=== PATIENT | female | born 1980 | race Caucasian/White ===

== ENCOUNTER 2016-12-09 11:56 | Observation (INO) | payer BC, OTHER ==
[~2016-12-09] VITALS: Ht 162.6 cm; Wt 55.2 kg
[~2016-12-09 11:56] MED LIST: MULT-516 PO
[2016-12-09 12:38] LABS: HCG UR OBC PASS
[2016-12-09 12:50] VITALS: BP 151/87
[2016-12-09] MEDS: LACTATED RINGERS 1,000 ML IV SCH ×3 (12:50→18:42)
[2016-12-09] MEDS ORDERED: PLEASE ENTER ALLERGIES MC SCH ×4 (13:00→17:30)
[2016-12-09] MEDS ORDERED: MIDAZOLAM 1 MG/ML, 2ML ONE (13:07)
[2016-12-09] MEDS ORDERED: HYDROmorphone 2 MG/ML, 1ML ONE (13:07)
[2016-12-09] MEDS ORDERED: FENTANYL PF 100 MCG/2ML ONE ×2 (13:07→16:31)
[2016-12-09] MEDS ORDERED: BUPIVACAINE/PF 0.5% ONE (13:50)
[2016-12-09] MEDS ORDERED: EPINEPHRINE 1 MG/ML, 1ML ONE (13:50)
[2016-12-09] MEDS ORDERED: DEXAMETHASONE 4 MG/ML, 1ML ONE ×2 (14:15)
[2016-12-09] MEDS ORDERED: ONDANSETRON 2MG/ML, 2ML ONE ×3 (14:15→16:31)
[2016-12-09] MEDS ORDERED: CEFAZOLIN 1,000 MG ONE ×2 (14:15)
[2016-12-09] MEDS ORDERED: SUCCINYLCHOLINE 20 MG/ML, 10ML ONE ×2 (14:15)
[2016-12-09] MEDS ORDERED: PROPOFOL 10 MG/ML, 20ML ONE ×2 (14:15)
[2016-12-09] MEDS ORDERED: ROCURONIUM 10 MG/ML ONE ×2 (14:15)
[2016-12-09] MEDS ORDERED: KETOROLAC 30 MG/1 ML ONE ×2 (14:15)
[2016-12-09] MEDS ORDERED: OXYcodone 5 MG/5 ML ORAL.SOL UDC PO PRN (15:30)
[2016-12-09] MEDS ORDERED: METOCLOPRAMIDE 5 MG/ML, 2ML IV PRN (15:30)
[2016-12-09] MEDS ORDERED: LABETALOL 5MG/ML, 20ML IV PRN (15:30)
[2016-12-09] MEDS ORDERED: hydrALAzine 20 MG/ML, 1ML IV PRN (15:30)
[2016-12-09] MEDS ORDERED: ONDANSETRON 2MG/ML, 2ML IVPush PRN ×2 (15:30→17:00)
[2016-12-09] MEDS ORDERED: ACETAMINOPHEN 325 MG TABLET PO PRN (15:30)
[2016-12-09] MEDS ORDERED: ACETAMINOPHEN 650 MG/20.3 ML UDC ONE (16:31)
[2016-12-09] MEDS ORDERED: OXYcodone 5 MG/5 ML ORAL.SOL UDC ONE (16:31)
[2016-12-09] MEDS: FENTANYL PF 100 MCG/2ML IV PRN ×2 (16:35→16:48)
[2016-12-09] MEDS ORDERED: LACTATED RINGERS 1,000 ML IV SCH (16:40)
[2016-12-09] MEDS ORDERED: DIPHENHYDRAMINE 50 MG/ML, 1ML ONE (16:42)
[2016-12-09] MEDS ORDERED: DIPHENHYDRAMINE 50 MG/ML, 1ML IVPush ONE (17:00)
[2016-12-09] MEDS ORDERED: HYDROmorphone 2 MG/ML, 1ML IVPush PRN (17:00)
[2016-12-09] MEDS ORDERED: KETOROLAC 30 MG/1 ML IVPush SCH (17:00)
[2016-12-09] MEDS ORDERED: HYDROmorphone 1 MG/ML, 1ML ONE (17:13)
[2016-12-09] MEDS: HYDROmorphone 1 MG/ML, 1ML IV PRN ×2 (17:16→17:35)
[2016-12-09] MEDS ORDERED: ONDA4TAB13 SL (19:27)
[2016-12-09 19:29] VITALS: BP 137/74
[2016-12-09] MEDS: OXYcodone/APAP 5/325MG TABLET PO PRN ×2 (19:52→20:39)
[2016-12-09] MEDS ORDERED: DOCUSATE 100 MG CAPSULE PO SCH (21:00)
== END 2016-12-09 20:00 | disposition home or self-care (01) ==
LOC: OUT 11:56 → ORIP 16:40 → 4NOR 18:15
PROVIDERS: ADMIT Obstetrics & Gynecology; ATTEND Obstetrics & Gynecology
DX: N80.9 Endometriosis, unspecified (principal); N92.1 Excessive and frequent menstruation with irregular cycle; R10.2 Pelvic and perineal pain; G89.29 Other chronic pain; N94.6 Dysmenorrhea, unspecified; N94.10 Unspecified dyspareunia; N83.209 Unspecified ovarian cyst, unspecified side
CPT/HCPCS: 58571; 58662; 81025; 88307; 96374; G0378; J0171; J0330; J0690; J1100; J1170; J1200; J1885; J2250; J2405; J2704; J3010; J3490; J7120